=== PATIENT | male | born 1990 | race Caucasian/White ===

== ENCOUNTER 2020-12-27 18:30 | Emergency (ER) | payer OTHER ==
[2020-12-27] MEDS ORDERED: Dexamethasone 4 MG TAB ONE (19:19)
--- NOTE | 2020-12-27 19:25 | RAD ---
2 view chest: [12/27/2020] Comparison:None available HISTORY: Cough with shortness of breath for one month FINDINGS: Heart and mediastinal contours are grossly unremarkable. No pneumothorax or pleural fluid. No focal consolidation or alveolar edema. IMPRESSION: No acute findings.
[2020-12-27 19:33] LABS: #Basophils 0.1 thou/uL (0.0-0.2); #Eosinphils 1.1 thou/uL (0.0-0.7); #Lymphocytes 3.1 thou/uL (1.20-3.40); #Monocytes 0.6 thou/uL (0.11-0.59); #Neutrophils 3.1 thou/uL (1.40-6.50); %Basophils 1.5 % (0.0-1.0); %Eosinophils 13.7 % (0.0-10.0); %Lymphocytes 38.2 % (21.0-51.0); %Monocytes 7.7 % (0.0-10.0); %Neutrophils 38.9 % (42.0-75.0); Hemoglobin 16.1 g/dL (14.0-18.0); Mean Corpuscular HGB CONC 33.5 g/dL (32.0-36.0); Mean Corpuscular Hemoglobin 29.6 pg (27.0-31.0); Mean Corpuscular Volume 88.4 fL (78.0-98.0); Mean Platelet Volume 7.2 fL (7.4-10.4); Platelet Count 209 thou/uL (130-400); RBC Distribution Width 10.7 % (11.5-14.5); Red Blood Cell (RBC) Count 5.43 mill/uL (4.70-6.10)
[2020-12-27 19:51] LABS: ALT (SGPT) 33 U/L (8-55); AST (SGOT) 17 U/L (5-34); Alkaline Phosphatase 66 U/L (40-110); Anion Gap 15 mmol/L (10-20); BUN (Urea Nitrogen) 17 mg/dL (8.9-20.6); Bilirubin, Total 0.4 mg/dL (0.2-1.2); Calc. Creatinine Clearance 0 mL/min (70-130); Calcium 10.2 mg/dL (7.8-10.44); Carbon Dioxide 24 mmol/L (22-29); Chloride 106 mmol/L (98-107); Globulin 3.3 g/dL (2.4-3.5); Glucose 98 mg/dL (70-105); Potassium 4.1 mmol/L (3.5-5.1); Protein, Total 8.3 g/dL (6.0-8.3); Sodium 141 mmol/L (136-145)
[2020-12-29 02:13] LABS: SARS-CoV-2 PCR by NAA Not Detected (NotDetected)
== END 2020-12-27 20:26 | disposition home or self-care (01) ==
LOC: MADERS 18:30
DX: J18.9 Pneumonia, unspecified organism (principal); Z20.822 Contact with and (suspected) exposure to COVID-19; F17.210 Nicotine dependence, cigarettes, uncomplicated; F17.290 Nicotine dependence, other tobacco product, uncomplicated
CPT/HCPCS: 36415; 71046; 80053; 83880; 85025; 86140; 87635; J7620; J8540; U0003; U0005

== ENCOUNTER 2021-01-31 08:18 | Emergency (ER) | payer OTHER, SELFPAY ==
[2021-01-31] MEDS ORDERED: Ipratropium Bromide 2.5 ml Neb ONE (08:57)
[2021-01-31] MEDS ORDERED: predniSONE 20 MG TAB ONE (08:57)
[2021-01-31] MEDS ORDERED: Albuterol Sulfate 2.5 mg/0.5 ml Neb ONE (09:00)
== END 2021-01-31 09:57 | disposition home or self-care (01) ==
LOC: MADERS 08:18
DX: J45.909 Unspecified asthma, uncomplicated (principal); F17.210 Nicotine dependence, cigarettes, uncomplicated
CPT/HCPCS: 71046; J7512; J7611; J7620

== ENCOUNTER 2021-02-11 22:32 | Emergency (ER) | payer SELFPAY ==
[~2021-02-11 22:32] MED LIST: Iopamidol 370 76% 125 ML VIAL FS ONE
[2021-02-11 23:22] LABS: #Basophils 0.1 thou/uL (0.0-0.2); #Eosinphils 1.1 thou/uL (0.0-0.7); #Lymphocytes 3.1 thou/uL (1.20-3.40); #Monocytes 0.7 thou/uL (0.11-0.59); #Neutrophils 3.4 thou/uL (1.40-6.50); %Basophils 1.6 % (0.0-1.0); %Eosinophils 12.6 % (0.0-10.0); %Lymphocytes 37.3 % (21.0-51.0); %Monocytes 8.4 % (0.0-10.0); %Neutrophils 40.1 % (42.0-75.0); Hemoglobin 16.2 g/dL (14.0-18.0); Mean Corpuscular HGB CONC 33.3 g/dL (32.0-36.0); Mean Corpuscular Hemoglobin 30.7 pg (27.0-31.0); Mean Corpuscular Volume 92.3 fL (78.0-98.0); Platelet Count 215 thou/uL (130-400); RBC Distribution Width 11.4 % (11.5-14.5); Red Blood Cell (RBC) Count 5.26 mill/uL (4.70-6.10); White Blood Cell (WBC) Count 8.4 thou/uL (4.8-10.8)
[2021-02-11 23:41] LABS: ALT (SGPT) 19 U/L (8-55); AST (SGOT) 14 U/L (5-34); Albumin 4.9 g/dL (3.5-5.0); Alkaline Phosphatase 64 U/L (40-110); Anion Gap 15 mmol/L (10-20); BUN (Urea Nitrogen) 17 mg/dL (8.9-20.6); Bilirubin, Total 0.5 mg/dL (0.2-1.2); Calc. Creatinine Clearance 0 mL/min (70-130); Calcium 9.6 mg/dL (7.8-10.44); Carbon Dioxide 25 mmol/L (22-29); Chloride 106 mmol/L (98-107); Globulin 2.7 g/dL (2.4-3.5); Glucose 87 mg/dL (70-105); Potassium 4.2 mmol/L (3.5-5.1); Protein, Total 7.6 g/dL (6.0-8.3); Sodium 142 mmol/L (136-145)
[2021-02-12] MEDS ORDERED: HYDROcodone/Acetaminophen 5/325 mg Tablet ONE (00:10)
== END 2021-02-12 00:23 | disposition home or self-care (01) ==
LOC: MADERS 22:32
DX: J41.0 Simple chronic bronchitis (principal); F17.290 Nicotine dependence, other tobacco product, uncomplicated
CPT/HCPCS: 71275; 80053; 83880; 84484; 85025; J7620; Q9967